=== PATIENT | male | born 1985 | race Two or more races ===

== ENCOUNTER 2025-04-23 17:59 | Emergency (ER) | payer MEDICAID, SELFPAY ==
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
[2025-04-23 18:03] VITALS: BP 144/94; PULSE 103; RESP 18; TEMP 37.3; O2SAT 96
[2025-04-23 18:04] VITALS: PULSE 119; RESP 20; O2SAT 98
[2025-04-23 18:09] VITALS: BMI 24.2
[2025-04-23 19:17] VITALS: BP 143/106; PULSE 95; RESP 17; TEMP 36.6; O2SAT 97
--- NOTE | 2025-04-23 19:20 | PC.NURSE ---
pt reporting left ankle pain of 01/18, MERE burks made aware. no new orders at this time pt stable
[2025-04-23 20:41] VITALS: BP 140/84; PULSE 80; RESP 18; TEMP 37; O2SAT 97
== END 2025-04-23 20:43 | disposition home or self-care (01) ==
PROVIDERS: Emergency Provider Emergency Medicine
DX: S93.402A Sprain of unspecified ligament of left ankle, initial encounter (principal); V19.40XA Pedal cycle driver injured in collision with unspecified motor vehicles in traffic accident, initial encounter; V89.2XXA Person injured in unspecified motor-vehicle accident, traffic, initial encounter; Y93.55 Activity, bike riding
CPT/HCPCS: 73120; 73610; 99282